=== PATIENT | male | born 1980 | race Caucasian/White ===

== ENCOUNTER → 2017-01-29 | Outpatient (CLI) | payer MEDICAID, OTHER ==
--- NOTE | 2017-01-31 04:31 | REP ---
Clinical: Lower back pain. Technique: AP, lateral, bilateral oblique and coned-down views of the lumbosacral spine. Findings: Straightening of normal lordosis is nonspecific. Moderate multilevel degenerative changes include endplate sclerosis with marginal spurring/early osteophyte formation and mild hypertrophic facet changes. No acute fracture / compression injury or subluxation. Impression: Moderate multilevel degenerative changes primarily involving the L5-S1 and L2-3 level. Signed by Manuel Young MD 01/31/2017 04:22 A
== END ==
LOC: M LRY 15:08
PROVIDERS: ATTEND Family Medicine
DX: M54.40 Lumbago with sciatica, unspecified side (principal)

== ENCOUNTER 2017-02-27 12:52 | Outpatient (RCR) | payer OTHER | END 2017-02-28 | LOC: M PT 12:52 | PROVIDERS: ATTEND Family Medicine | DX: Z51.89 Encounter for other specified aftercare (principal); M54.5 Low back pain ==

== ENCOUNTER 2017-03-18 13:00 | Outpatient (RCR) | payer OTHER | END 2017-03-30 | disposition home or self-care (01) | LOC: M PT 13:00 | PROVIDERS: ATTEND Family Medicine | DX: Z51.89 Encounter for other specified aftercare (principal); M54.5 Low back pain ==

== ENCOUNTER → 2018-01-08 | Outpatient (CLI) | payer OTHER | LOC: M OUTALCOH 10:18 | DX: Z13.9 Encounter for screening, unspecified (principal) ==

== ENCOUNTER 2018-01-15 16:59 | Outpatient (RCR) | payer MEDICAID | END 2018-01-28 | LOC: M OUTALCOH 01-21 16:00 | DX: F10.10 Alcohol abuse, uncomplicated (principal); F17.200 Nicotine dependence, unspecified, uncomplicated ==

== ENCOUNTER 2018-03-06 15:45 | Outpatient (RCR) | payer MEDICAID | END 2018-03-30 | LOC: M OUTALCOH 15:45 | DX: F10.10 Alcohol abuse, uncomplicated (principal); F17.200 Nicotine dependence, unspecified, uncomplicated ==

== ENCOUNTER 2018-03-31 14:29 | Outpatient (RCR) | payer MEDICAID | END 2018-04-30 | LOC: M OUTALCOH 14:29 | DX: F10.20 Alcohol dependence, uncomplicated (principal); F19.20 Other psychoactive substance dependence, uncomplicated; F17.200 Nicotine dependence, unspecified, uncomplicated ==

== ENCOUNTER 2018-05-02 11:16 | Outpatient (RCR) | payer MEDICAID | END 2018-05-30 | LOC: M OUTALCOH 11:16 | DX: F10.20 Alcohol dependence, uncomplicated (principal); F19.20 Other psychoactive substance dependence, uncomplicated; F17.200 Nicotine dependence, unspecified, uncomplicated ==

== ENCOUNTER 2018-06-27 13:00 | Outpatient (RCR) | payer MEDICAID | END 2018-06-30 | LOC: M OUTALCOH 13:00 | PROVIDERS: ATTEND Psychiatry & Neurology Psychiatry | DX: F10.20 Alcohol dependence, uncomplicated (principal); F19.20 Other psychoactive substance dependence, uncomplicated; F17.200 Nicotine dependence, unspecified, uncomplicated ==

== ENCOUNTER 2018-07-28 14:00 | Outpatient (RCR) | payer MEDICAID | END 2018-07-31 | LOC: M OUTALCOH 14:00 | PROVIDERS: ATTEND Psychiatry & Neurology Psychiatry | DX: F10.20 Alcohol dependence, uncomplicated (principal); F19.20 Other psychoactive substance dependence, uncomplicated; F17.200 Nicotine dependence, unspecified, uncomplicated ==

== ENCOUNTER → 2018-08-28 | Outpatient (RCR) | payer MEDICAID | LOC: M OUTALCOH 08-04 14:08 | PROVIDERS: ATTEND Psychiatry & Neurology Psychiatry | DX: F10.20 Alcohol dependence, uncomplicated (principal); F19.20 Other psychoactive substance dependence, uncomplicated; F17.200 Nicotine dependence, unspecified, uncomplicated ==

== ENCOUNTER → 2018-09-01 | Outpatient (CLI) | payer MEDICAID, OTHER ==
[2018-09-01 09:11] LABS: ALT/SGPT 29 U/L (12-78); BILIRUBIN,TOTAL 0.3 MG/DL (0.2-1.0); BLOOD UREA NITROGEN 18 MG/DL (7-18); CALCIUM LEVEL 9.2 MG/DL (8.5-10.1); CARBON DIOXIDE LEVEL 31 MEQ/L (21-32); CHLORIDE LEVEL 102 MEQ/L (98-107); CHOLESTEROL LEVEL 180 MG/DL (<200); CHOLESTEROL RISK RATIO 4.285 (<5); CREATININE FOR GFR 1.23 MG/DL (0.70-1.30); GLOMERULAR FILTRATION RATE > 60.0 (>60); GLUCOSE, FASTING 100 MG/DL (70-100); HDL CHOLESTEROL 42 MG/DL (>40); LDL CHOLESTEROL 113 MG/DL (<100); NON-HDL-C 138 MG/DL; POTASSIUM SERUM 4.3 MEQ/L (3.5-5.1); SODIUM LEVEL 140 MEQ/L (136-145); TOTAL PROTEIN 7.2 GM/DL (6.4-8.2); TRIGLYCERIDES LEVEL 125 MG/DL (<150)
[2018-09-01 10:26] LABS: HEMOGLOBIN A1c 5.5 %
== END ==
LOC: M LAB 08:08
PROVIDERS: ATTEND Family Medicine
DX: Z13.1 Encounter for screening for diabetes mellitus (principal); Z13.220 Encounter for screening for lipoid disorders

== ENCOUNTER 2018-09-26 09:00 | Outpatient (RCR) | payer MEDICAID | END 2018-09-28 | LOC: M OUTALCOH 09:00 | PROVIDERS: ATTEND Psychiatry & Neurology Psychiatry | DX: F10.20 Alcohol dependence, uncomplicated (principal); F19.20 Other psychoactive substance dependence, uncomplicated; F17.200 Nicotine dependence, unspecified, uncomplicated ==

== ENCOUNTER → 2018-10-03 | Outpatient (CLI) | payer OTHER ==
--- NOTE | 2018-10-03 15:17 | REP ---
BILATERAL LOWER EXTREMITY DUPLEX DOPPLER ARTERIAL ULTRASOUND: Real-time ultrasound evaluation and duplex Doppler interrogation of bilateral lower extremity arterial systems is performed. KRISTINE right is 1.1 and left is 1.0. No significant plaquing or narrowing is seen in either lower extremity arterial system. Triphasic waveforms are seen throughout. There is no significant stenosis. Right Peak Left Peak Systolic Velocity Systolic velocity Common femoral artery 86.0 cm/s 65.6 cm/s Profunda 54.7 cm/s 55.7 cm/s SFA 112.0 cm/s 110.0 cm/s Popliteal 63.5 cm/s 58.9 cm/s Proximal GABRIEL 40.3 cm/s 30.6 cm/s Tibial peroneal trunk 73.6 cm/s 54.6 cm/s Proximal WOUND CARE COORDINATOR 116.0 cm/s 72.7 cm/s Distal WOUND CARE COORDINATOR 63.1 cm/s 45.6 cm/s Distal GABRIEL 80.7 cm/s 56.8 cm/s IMPRESSION: No significant plaquing and no evidence of stenosis of the bilateral lower extremity arterial systems. Electronically Signed by Herber Hand MD 10/03/2018 04:25 P
== END ==
LOC: M RAD 13:10
PROVIDERS: ATTEND Family Medicine
DX: Z86.79 Personal history of other diseases of the circulatory system (principal)

== ENCOUNTER 2018-10-27 16:00 | Outpatient (RCR) | payer MEDICAID | END 2018-10-28 | LOC: M OUTALCOH 16:00 | PROVIDERS: ATTEND Psychiatry & Neurology Psychiatry | DX: F10.20 Alcohol dependence, uncomplicated (principal); F19.20 Other psychoactive substance dependence, uncomplicated; F17.200 Nicotine dependence, unspecified, uncomplicated ==

== ENCOUNTER → 2018-11-13 | Outpatient (CLI) | payer MEDICAID, OTHER ==
--- NOTE | 2018-11-13 17:26 | REP ---
Chest two views HISTORY: Cellulitis Comparison: None The lungs are clear. The heart is normal in size. The pulmonary vasculature is normal in appearance. The bony structure is intact. IMPRESSION: No acute disease. Electronically Signed by Glenn Bowman MD 11/13/2018 05:18 P
[2018-11-13 20:53] LABS: BASO # 0.1 10^3/uL (0.0-0.2); BASO % 0.3 % (0.0-1.0); EOS # 0.2 10^3/uL (0.0-0.50); EOS % 1.4 % (0.0-3.0); HEMATOCRIT 45.5 % (42.0-52.0); LYMPH # 2.9 10^3/uL (1.5-4.5); LYMPH % 17.2 % (24.0-44.0); MEAN CORPUSCULAR HEMOGLOBIN 30.4 pg (27.0-33.0); MEAN CORPUSCULAR VOLUME 92.3 fl (80.0-96.0); MONO % 5.7 % (0.0-5.0); NEUTROPHILS # 12.8 10^3/uL (1.8-7.7); PLATELET COUNT, AUTOMATED 347 10^3/uL (150-450); RED BLOOD COUNT 4.93 10^6/uL (4.30-6.10)
[2018-11-13 20:55] LABS: ALBUMIN 4.1 GM/DL (3.2-5.2); ALT/SGPT 20 U/L (12-78); BILIRUBIN,TOTAL 0.4 MG/DL (0.2-1.0); BLOOD UREA NITROGEN 19 MG/DL (7-18); CALCIUM LEVEL 9.9 MG/DL (8.5-10.1); CARBON DIOXIDE LEVEL 28 MEQ/L (21-32); CHLORIDE LEVEL 105 MEQ/L (98-107); CREATININE FOR GFR 1.05 MG/DL (0.70-1.30); GLOMERULAR FILTRATION RATE > 60.0 (>60); GLUCOSE, FASTING 83 MG/DL (70-100); POTASSIUM SERUM 4.1 MEQ/L (3.5-5.1); SODIUM LEVEL 139 MEQ/L (136-145); TOTAL PROTEIN 7.1 GM/DL (6.4-8.2)
== END ==
LOC: M WUC 16:56
PROVIDERS: ATTEND Physician Assistant
DX: L03.032 Cellulitis of left toe (principal); M79.669 Pain in unspecified lower leg

== ENCOUNTER 2018-11-14 09:00 | Outpatient (RCR) | payer MEDICAID | END 2018-11-28 | LOC: M OUTALCOH 09:00 | PROVIDERS: ATTEND Psychiatry & Neurology Psychiatry | DX: F10.20 Alcohol dependence, uncomplicated (principal); F19.20 Other psychoactive substance dependence, uncomplicated; F17.200 Nicotine dependence, unspecified, uncomplicated ==

== ENCOUNTER 2018-12-26 12:03 | Outpatient (RCR) | payer MEDICAID | END 2018-12-28 | LOC: M OUTALCOH 12:03 | PROVIDERS: ATTEND Psychiatry & Neurology Psychiatry | DX: F10.20 Alcohol dependence, uncomplicated (principal); F19.20 Other psychoactive substance dependence, uncomplicated; F17.200 Nicotine dependence, unspecified, uncomplicated ==

== ENCOUNTER 2019-02-19 15:00 | Outpatient (RCR) | payer MEDICAID | END 2019-02-28 | LOC: M OUTALCOH 15:00 | PROVIDERS: ATTEND Psychiatry & Neurology Psychiatry | DX: F10.20 Alcohol dependence, uncomplicated (principal); F19.20 Other psychoactive substance dependence, uncomplicated; F17.200 Nicotine dependence, unspecified, uncomplicated ==

== ENCOUNTER 2019-03-27 09:00 | Outpatient (RCR) | payer MEDICAID | END 2019-03-30 | LOC: M OUTALCOH 09:00 | PROVIDERS: ATTEND Psychiatry & Neurology Psychiatry | DX: F10.20 Alcohol dependence, uncomplicated (principal) ==

== ENCOUNTER → 2019-05-08 | Outpatient (REF) | payer OTHER | LOC: M SFHCPLAZ 09:30 | PROVIDERS: ATTEND Family Medicine | DX: Z00.00 Encounter for general adult medical examination without abnormal findings (principal); F17.210 Nicotine dependence, cigarettes, uncomplicated ==

== ENCOUNTER 2019-05-11 09:10 | Outpatient (RCR) | payer MEDICAID | END 2019-05-30 | LOC: M OUTALCOH 09:10 | PROVIDERS: ATTEND Psychiatry & Neurology Psychiatry | DX: F10.20 Alcohol dependence, uncomplicated (principal) ==

== ENCOUNTER 2019-07-31 14:06 | Emergency (ER) | payer MEDICAID, OTHER ==
[~2019-07-31] VITALS: Ht 198.1 cm; Wt 123.7 kg
[2019-07-31] MEDS ORDERED: GABA-845 (14:14)
[2019-07-31 14:52] LABS: BASO # 0.1 10^3/uL (0.0-0.2); BASO % 0.6 % (0.0-1.0); EOS # 0.3 10^3/uL (0.0-0.5); EOS % 2.8 % (0.0-3.0); HEMATOCRIT 47.3 % (42.0-52.0); LYMPH # 2.3 10^3/uL (1.5-5.0); LYMPH % 21.9 % (24.0-44.0); MEAN CORPUSCULAR HEMOGLOBIN 30.9 pg (27.0-33.0); MEAN CORPUSCULAR HGB CONC 33.8 g/dl (32.0-36.5); MEAN CORPUSCULAR VOLUME 91.5 fl (80.0-96.0); MONO # 0.8 10^3/uL (0.0-0.8); MONO % 7.8 % (0.0-5.0); NEUTROPHILS # 6.9 10^3/uL (1.5-8.5); NEUTROPHILS % 66.7 % (36.0-66.0); PLATELET COUNT, AUTOMATED 336 10^3/uL (150-450); RED BLOOD COUNT 5.17 10^6/uL (4.30-6.10); WHITE BLOOD COUNT 10.4 10^3/uL (4.0-10.0)
--- NOTE | 2019-07-31 14:54 | REP ---
No chest, 02:49, single AP view with the the patient sitting: Comparison is the PA and lateral chest of 11/13/2018. The lung wright are clear. The cardiac size is normal. The letha, mediastinum, and skeletal structures are unremarkable. Impression: Negative portable chest. There is no interval change. Electronically Signed by Herber Murillo MD 07/31/2019 02:46 P
[2019-07-31] MEDS ORDERED: dexameTHASONE 20 MG/5 ML VIAL (J1100) IV ONE (15:00)
[2019-07-31] MEDS ORDERED: ALBUTEROL SULFATE 2.5 MG/0.5 ML INH NEB SOLN INH ONE (15:00)
[2019-07-31 15:13] LABS: BLOOD UREA NITROGEN 16 MG/DL (7-18); CALCIUM LEVEL 9.3 MG/DL (8.5-10.1); CARBON DIOXIDE LEVEL 25 MEQ/L (21-32); CHLORIDE LEVEL 109 MEQ/L (98-107); CK-MB VALUE MASS < 1.0 NG/ML (<3.6); CPK CREATINE PHOSPHOKINASE 114 U/L (39-308); CREATININE FOR GFR 1.12 MG/DL (0.70-1.30); GLOMERULAR FILTRATION RATE > 60.0 (>60); GLUCOSE, FASTING 98 MG/DL (70-100); MB/CK RELATIVE INDEX 0.88 (< OR =4); POTASSIUM SERUM 4.1 MEQ/L (3.5-5.1); SODIUM LEVEL 140 MEQ/L (136-145); TROPONIN I < 0.02 NG/ML (< 0.10)
[2019-07-31 16:45] VITALS: BP 119/73
[2019-07-31] MEDS ORDERED: PROAAER10 INH (16:46)
[2019-07-31] MEDS ORDERED: PRED20TA PO (16:46)
--- NOTE | 2019-08-01 21:27 | ECGEPIP ---
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
== END 2019-07-31 17:16 | disposition home or self-care (01) ==
LOC: M ED 14:06
DX: J45.901 Unspecified asthma with (acute) exacerbation (principal); F17.200 Nicotine dependence, unspecified, uncomplicated; I45.19 Other right bundle-branch block; Z79.899 Other long term (current) drug therapy
CPT/HCPCS: 71045; 80048; 82550; 82553; 85025; 93005; 93041; 94760; 96374; 99285; J1100

== ENCOUNTER 2020-04-20 16:44 | Emergency (ER) | payer OTHER ==
[~2020-04-20] VITALS: Ht 198.1 cm; Wt 112.0 kg
[~2020-04-20 16:44] MED LIST: GABA-845; PRED20TA PO; PROAAER10 INH
[2020-04-20] MEDS ORDERED: IBUP80TA PO (17:05)
[2020-04-20] MEDS ORDERED: CLIN300C5 PO (17:05)
[2020-04-20] MEDS ORDERED: ONDANSETRON 4MG/2ML VIAL IV ONE (17:45)
[2020-04-20] MEDS ORDERED: MORPHINE 4 MG/ML 1ML VIAL/SYRINGE (J2270) IV ONE (17:45)
[2020-04-20] MEDS ORDERED: NS 1,000 ML IV ONE (17:45)
[2020-04-20 18:26] LABS: BASO # 0.1 10^3/uL (0.0-0.2); BASO % 0.4 % (0.0-1.0); EOS # 0.1 10^3/uL (0.0-0.5); EOS % 0.4 % (0.0-3.0); HEMATOCRIT 46.3 % (42.0-52.0); HEMOGLOBIN 15.7 g/dl (13.5-17.5); LYMPH % 8.8 % (24.0-44.0); MEAN CORPUSCULAR HEMOGLOBIN 31.5 pg (27.0-33.0); MEAN CORPUSCULAR HGB CONC 33.9 g/dl (32.0-36.5); MEAN CORPUSCULAR VOLUME 92.8 fl (80.0-96.0); MONO # 1.9 10^3/uL (0.0-0.8); MONO % 8.4 % (0.0-5.0); NEUTROPHILS # 18.2 10^3/uL (1.5-8.5); NEUTROPHILS % 81.5 % (36.0-66.0); PLATELET COUNT, AUTOMATED 344 10^3/uL (150-450); RED BLOOD COUNT 4.99 10^6/uL (4.30-6.10); WHITE BLOOD COUNT 22.3 10^3/uL (4.0-10.0)
[2020-04-20 19:46] VITALS: BP 126/80
== END 2020-04-20 20:24 | disposition home or self-care (01) ==
LOC: M ED 16:44
DX: L76.22 Postprocedural hemorrhage of skin and subcutaneous tissue following other procedure (principal); K08.109 Complete loss of teeth, unspecified cause, unspecified class; F17.200 Nicotine dependence, unspecified, uncomplicated; Z79.51 Long term (current) use of inhaled steroids; Z79.1 Long term (current) use of non-steroidal anti-inflammatories (NSAID); Z79.899 Other long term (current) drug therapy
CPT/HCPCS: 85025; 96361; 96374; 96375; 99283; J2270; J2405

== ENCOUNTER → 2020-07-08 | Outpatient (CLI) | payer OTHER ==
[~2020-07-08] MED LIST changes: +CLIN300C6 PO; +IBUP80TA PO
[2020-07-08 09:46] LABS: BASO # 0.1 10^3/uL (0.0-0.2); BASO % 0.6 % (0.0-1.0); EOS # 0.3 10^3/uL (0.0-0.5); HEMATOCRIT 42.4 % (42.0-52.0); HEMOGLOBIN 13.5 g/dl (13.5-17.5); LYMPH # 2.5 10^3/uL (1.5-5.0); LYMPH % 23.2 % (24.0-44.0); MEAN CORPUSCULAR HEMOGLOBIN 28.6 pg (27.0-33.0); MEAN CORPUSCULAR HGB CONC 31.8 g/dl (32.0-36.5); MEAN CORPUSCULAR VOLUME 89.8 fl (80.0-96.0); MONO # 0.9 10^3/uL (0.0-0.8); MONO % 8.5 % (0.0-5.0); NEUTROPHILS % 64.3 % (36.0-66.0); PLATELET COUNT, AUTOMATED 343 10^3/uL (150-450); RED BLOOD COUNT 4.72 10^6/uL (4.30-6.10); WHITE BLOOD COUNT 10.8 10^3/uL (4.0-10.0)
[2020-07-08 10:26] LABS: ALBUMIN 4.1 GM/DL (3.2-5.2); ALT/SGPT 26 U/L (12-78); BILIRUBIN,TOTAL 0.3 MG/DL (0.2-1.0); BLOOD UREA NITROGEN 23 MG/DL (7-18); CARBON DIOXIDE LEVEL 27 MEQ/L (21-32); CHLORIDE LEVEL 104 MEQ/L (98-107); CHOLESTEROL LEVEL 156 MG/DL (<200); CREATININE FOR GFR 1.13 MG/DL (0.70-1.30); GLOMERULAR FILTRATION RATE > 60.0 (>60); GLUCOSE, FASTING 89 MG/DL (70-100); HDL CHOLESTEROL 60 MG/DL (>40); LDL CHOLESTEROL 75 MG/DL (<100); NON-HDL-C 96 MG/DL; POTASSIUM SERUM 4.5 MEQ/L (3.5-5.1); SODIUM LEVEL 136 MEQ/L (136-145); TOTAL PROTEIN 7.2 GM/DL (6.4-8.2); TRIGLYCERIDES LEVEL 104 MG/DL (<150)
== END ==
LOC: M LAB 08:55
PROVIDERS: ATTEND Family Medicine
DX: Z00.01 Encounter for general adult medical examination with abnormal findings (principal); Z13.220 Encounter for screening for lipoid disorders

== ENCOUNTER 2020-07-13 14:51 | Emergency (ER) | payer OTHER ==
[~2020-07-13] VITALS: Ht 198.1 cm; Wt 109.7 kg
[2020-07-13 14:52] VITALS: BP 130/68
--- OUTSIDE RECORDS SUMMARY | 2020-07-13 14:57 | CCD ---
Author Author [facility] Organization [facility] Address Unknown Phone Unavailable Care Team Providers Care Mechanical Reliability Engineer Name Role Phone Reilly Ramos Unavailable PROBLEMS Type Condition ICD9-CM Code [id number] Code Onset Dates Condition S tatus SNOMED Code Notes Problem Cigarette nicotine dependence without complication F17.210 Active 30929376 Problem Venous (peripheral) insufficiency I87.2 Active 05884411 Problem Acute bilateral low back ventura n with sciatica, sciatica laterality unspecified M54.40 Active 471272726 Problem Alcohol use disorder, mild, in early remission F10 .11 Active 27138456 Problem Anxiety F41.9 Active 99923362 ALLERGIES No Known Allergies ENCOUNTERS from 1980 to 2020-06-07 Encounter Location Date Provider Diagnosis [facility] [place] [address] [place] [address] May, Reilly Ramos IMMUNIZATIONS Vaccine Route Administration Date Status Influenza (18 yrs & older) Flublok IM Intramuscular May 08, 2019 Administered Pneumococcal Adult 0.5mL (Pneumovax 23) IM Intramuscular May 08, 2019 Administered SOCIAL HISTORY Tobacco Use: Social History Observation Description Date Details (start date - stop date) Current Smoker Sex Assigned At : Social History Observation Description Sex Assigned At Unknown Audit Question Answer Notes Total Score: 0 Interpretation: Alcohol Education Sexual Hx: Question Answer Notes Had sex in the last 12 months (vaginal, oral, or anal)? Yes Have you ever had an STD? No with Women only Use protection? No Drug and Alcohol Question Answer Notes Total Score: 0 Interpretation: No problems reported Alcohol Screening: Question Answer Notes Did you have a drink containing alcohol in the past year? No Points 0 Interpretation Negative Tobacco Use: Question Answer Notes Are you a: current smoker Smoking Cessation Information Given 03/13/2019 Patient counseled on the dangers of tobacco use and urged to quit: 03/13/2019 How many cigarettes a day do you smoke? 21-30 Are you interested in quitting? Thinking about quitting Counseled the patient on smoking cessation, education provid ed 03/13/2019 REASON FOR REFERRAL No Information VITAL SIGNS No information MEDICATIONS Medication SIG (Take, Route, Frequency, Duration) Notes Start Da te End Date Status Gabapentin 400 MG 1 capsule Orally Three times a day for 30 days Active A-4 High Compression Mens Hose Above the knee 10-20 mm Hg as directed _ Daily for [address] days Nov, Active Chantix 1 MG 1 tablet Orally Twice a day for 30 day(s) Not-Taking Propranolol HCl 10 MG 1 tablet on an empty stomach Orally Once a day Active PROCEDURES No Information RESULTS No Results REASON FOR VISIT no showed MEDICAL (GENERAL) HISTORY Type Description Date Medical History anxiety/depression Surgical History No Surgical history information Goals Section No Information Health Concerns No Information MEDICAL EQUIPMENT No Information MENTAL STATUS No Information FUNCTIONAL STATUS No Information ASSESSMENTS No Information PLAN OF TREATMENT No Information Insurance Providers Payer Name Payer Address Payer Phone Insured Name Patient Relati onship to Insured Coverage Start Date Coverage End Date PENDING S[facility] [address] [facility] [address] GOPI LAWS self
--- OUTSIDE RECORDS SUMMARY | 2020-07-13 14:57 | CCD ---
Author Author [facility] Organization [facility] Address Unknown Phone Unavailable Support Name Relationship Address Phone STUBBS Next Of Kin [address] [place] [address] [employer] Next Of Kin [address] [place] [address] LALO GOODEN Next Of Kin [address] [place] [address] [facility] SPECIAL[employer] [place] [address] - UE Next Of Kin Unknown Unavailable UNEMPLOYED [place] [address] FARZANEH PARK Next Of Kin [address] [place] [address] [place] [address] September Next Of Kin [address] [place] [address] Lalo Gooden ECON [address] [place] [address] Unavailable Re-disclosure Warning The records that you are about to access may contain information from federally-assisted alcohol or drug abuse programs. If such information is present, then the following federally mandated warning applies: This information has been disclosed to you from records protected by federal confidentiality rules (42 CFR part 2). The federal rules prohibit you from making any further disclosure of this information unless further disclosure is expressly permitted by the written consent of the person to whom it pertains or as otherwise permitted by 42 CFR part 2. A general authorization for the release of medical or other information is NOT sufficient for this purpose. The Federal rules restrict any use of the information to criminally investigate or prosecute any alcohol or drug abuse patient.The records that you are about to access may contain highly sensitive health information, the redisclosure of which is protected by Article 27-F of the [facility] Public Health law. If you continue you may have access to information: Regarding HIV / AIDS; Provided by facilities licensed or operated by the [facility] Office of Mental Health; or Provided by the [facility] Office for People With Developmental Disabilities. If such information is present, then the following [facility] mandated warning applies: This information has been disclosed to you from confidential records which are protected by state law. State law prohibits you from making any further disclosure of this information without the specific written consent of the person to whom it pertains, or as otherwise permitted by law. Any unauthorized further disclosure in violation of state law may result in a fine or senior care sentence or both. A general authorization for the release of medical or other information is NOT sufficient authorization for further disc losure. Family History Family Member Name Family Member Gender Family Member Status Date o f Status Description Data Source(s) Unknown Unknown Problem MEDENT ([facility]) Unknown Female Problem MEDENT ([facility] ) Encounters Encounter Providers Location Date Indications Data Source(s ) Outpatient [address] [facility] [place] [address] 06/29/2020 12:00:00 AM EST eCW1 ([facility]) Unknown [address] [facility] [place] [address] 06/06/2020 12:00:00 AM EST eCW1 ([facility]) Outpatient 08/11/2019 02:12:00 PM EST [facility] Rad[facility] [place] [address] [facility] [place] [address] 08/03/2019 12:00:00 AM EST eCW1 ([facility]) [facility] [address] [facility] [place] [address] 06/19/2019 12:00:00 AM EST eCW1 ([facility]) Medications Medication Brand Name Start Date Product Form Dose Route Admi nistrative Instructions Pharmacy Instructions Status Indications Reaction Description Data Source(s) Chantix Starting Month Denilson 0.5 MG X 11 & 1 MG X 42 Cassandra ntix Starting Month Denilson 0.5 MG X 11 & 1 MG X 42 06/29/2020 12:00:00 AM EST active Chantix Starting Month Denilson 0.5 MG X 11 & 1 MG X 42 eCW1 ([facility]) Chantix Continuing Month Denilson 1 MG Chantix Continuing Month P ak 1 MG 06/29/2020 12:00:00 AM EST 1.0 {tablet} active Chantix Continuing Month Denilson 1 MG eCW1 ([facility]) Insurance Providers Payer name Policy type / Coverage type Policy ID Covered alliance party ID Covered alliance party's relationship to daily Policy Daily Plan Information [facility] [id number] SP [id number] [facility] [id number] SP [id number] [facility] O [id number] S [id number] [facility] [id number] SP [id number] MEDICAID [id number] SP [id number] ANSI-Medicaid [id number] ANSI-Medicaid [id number] [facility] Health Maintenance Organization ([facility]) [id number] Self [id number] ANSI-Medicaid [id number] ANSI-Medicaid [id number] ANSI-Medicaid [id number] ANSI-Medicaid [id number] [facility] O [id number] S [id number] Medicaid [place] (DO Not Use!) Medicaid Self BS [place] Medigap Part B Self Medicaid [place] Self MEDICAID -O/P EMERGENCY ROOM [id number] 18 [id number] [facility] [id number] 18 [id number] [facility]-O/P [id number] 18 [id number] Social History Code Duration Value Status Description Data Source(s ) Smoking 06/29/2020 12:00:00 AM EST Current Smoker completed Curre nt Smoker eCW1 ([facility]) Smoking 06/06/2020 12:00:00 AM EST Current Smoker completed Curre nt Smoker eCW1 ([facility]) Vital Signs ID Date Data Source UNK Name Value Range Interpretation Code Description Data Source(s) Diastolic blood pressure 82 mm[Hg] 82 mm[Hg] eCW1 ([facility]) Systolic blood pressure 120 mm[Hg] 120 mm[Hg] e CW1 ([facility]) Body temperature 97.4 [degF] 97.4 [degF] eCW1 ( [facility]) Respiratory rate 17 /min 17 /min eCW1 ([facility]) Heart rate 98 /min 98 /min eCW1 ([facility]) Body mass index (BMI) [Ratio] 27.12 kg/m2 27.12 kg/m2 eCW1 ([facility]) Body height 79.2 [in_i] 79.2 [in_i] eCW1 ([facility]) Body weight 242 [lb_av] 242 [lb_av] eCW1 ([facility]) Patient Treatment Plan of Care Planned Activity Planned Date Details Description Data Source (s) Chantix Continuing Month Denilson 1 MG 06/29/2020 12:00:00 AM EST eCW1 ([facility]) Chantix Starting Month Denilson 0.5 MG X 11 & 1 MG X 42 06/29/2020 12 :00:00 AM EST eCW1 ([facility])
--- OUTSIDE RECORDS SUMMARY | 2020-07-13 14:57 | CCD ---
Author Author [facility] Organization [facility] Address Unknown Phone Unavailable Care Team Providers Care Diabetes Education Coordinator Name Role Phone Reilly Ramos Unavailable PROBLEMS Type Condition ICD9-CM Code [id number] Code Onset Dates Condition S tatus SNOMED Code Notes Problem Cigarette nicotine dependence without complication F17.210 Active 69095825 Problem Venous (peripheral) insufficiency I87.2 Active 03947410 Problem Acute bilateral low back ventura n with sciatica, sciatica laterality unspecified M54.40 Active 724058286 Problem Alcohol use disorder, mild, in early remission F10 .11 Active 23270203 Problem Anxiety F41.9 Active 19785997 ALLERGIES No Known Allergies ENCOUNTERS from 1980 to 2020-06-29 Encounter Location Date Provider Diagnosis [facility] [place] Resident [address] [place] [address] May, Reilly Ramos Encounter for general adult medical examination with abnormal findings Z00.01 ; Anxiety F41.9 ; Screening for hyperlipidemia Z13.220 ; Cigarette nicotine dependence without complication F17.210 and Encounter for immunization Z23 IMMUNIZATIONS Vaccine Route Administration Date Status Influenza [...] drink containing alcohol in the past year? Ye s Points 3 Interpretation Negative How many drinks did you have on a typica l day when you were drinking in the past year? 3 or 4 (1 point) How often did you have a drink containing alcohol in t he past year? Two to four times a month (2 points) Tobacco Use: Question Answer Notes Are you a: current smoker Smoking Cessation Information Given 03/13/2019 Patient counseled on the dangers of tobacco use and urged to quit: 03/13/2019 How many cigarettes a day do you smoke? 21-30 Are you interested in quitting? Thinking about quitting Counseled the patient on smoking cessation, education provid ed 03/13/2019 REASON FOR REFERRAL No Information VITAL SIGNS Weight 242 lbs May, Height 79.2 in May, BMI 27.12 kg/m2 May, Heart Rate 98 /min May, Respiratory Rate 17 /min May, Temperature 97.4 degrees Fahrenheit May, Oximetry 99 May, Blood pressure systolic 120 mm Hg May, Blood pressure diastolic 82 mm Hg May, MEDICATIONS Medication SIG (Take, Route, Frequency, Duration) Notes Start Da te End Date Status A-4 High Compression Mens Hose Above the knee 10-20 mm Hg as directed _ Daily for [address] days Nov, Not-Taking Chantix Starting Month Denilson 0.5 MG X 11 & 1 MG X 42 as directed Orally 5 mg once a day for 3 days, then 0.5 mg twice a day for 4 days, then 1 mg BID for 30 days May, Active Gabapentin 400 MG 1 capsule Orally Three times a day for 30 days Active Chantix Continuing Month Denilson 1 MG 1 tablet Orally BID for 30 day s May, Active Propranolol HCl 10 MG 1 tablet on an empty stomach Orally Once a day Not-Taking Chantix 1 MG 1 tablet Orally Twice a day for 30 day(s) Not-Taking PROCEDURES No Information RESULTS No Results REASON FOR VISIT r/s of AWE MEDICAL (GENERAL) HISTORY Type Description Date Medical History anxiety/depression Surgical History No Surgical history information Goals Section No Information Health Concerns No Information MEDICAL EQUIPMENT No Information MENTAL STATUS No Information FUNCTIONAL STATUS No Information ASSESSMENTS Encounter Date Diagnosis Assessment Notes Treatment Notes Treatm ent Clinical Notes May, Encounter for general adult medical examination with abnormal findings (ICD-10 - Z00.01) See preventative medicine below. Patient is due for some laboratory studies which have been ordered. May, Anxiety (ICD-10 - F41.9) I will restart the patient on his gabapentin as this was working well for him for his anxiety. Patient's KEVIN-7 score is a 16. We will recheck this in 3 months after he has been on his anxiety medication to see how he is doing. May, Screening for hyperlipidemia (ICD-10 - Z13.220) Patient is a had a lipid panel since August 2018. This was ordered today. May, Cigarette nicotine dependenc e without complication (ICD-10 - F17.210) I discussed the benefits of quitting smoking with the patient including helping to lower his cardiovascular risk. Patient states that he does not want to go into his 40s while smoking. Patient says Chantix worked well for him in the past and would like to try this medication again. I discussed the benefits and risks to Chantix including the risk for vivid dreams and suicidal ideations. Patient tolerated his medication well. I discussed not getting discouraged with relapse attempts in trying alternate strategies when he has cravings in order to work through the cravings. I spent about 7 minutes counseling the patient. May, Encounter for immunization (ICD-10 - Z23) Patient needed an influenza vaccine today which was given. Advised patient that he will need 2 weeks prior to receiving the Covid 19 vaccine. PLAN OF TREATMENT Medication Medication Name Sig Start Date Stop Date Gabapentin 400 MG 1 capsule Orally Three times a day for 30 days Chantix Continuing Month Denilson 1 MG 1 tablet Orally BID for 30 day s May, Chantix Starting Month Denilson 0.5 MG X 11 & 1 MG X 42 as directed Orally 5 mg once a day for 3 days, then 0.5 mg twice a day for 4 days, then 1 mg BID for 30 days May, Treatment Notes Assessment Notes Clinical Notes Encounter for general adult medical examination with a bnormal findings See preventative medicine below. Patient is due for some laboratory studies which have been ordered. Anxiety I will restart the patient o n his gabapentin as this was working well for him for his anxiety. Patient's KEVIN-7 score is a 16. We will recheck this in 3 months after he has been on his anxiety medication to see how he is doing. Screening for hyperlipidemia Patient is a had a lipid panel since August 2018. This was ordered today. Cigarette nicotine dependence without complication I d iscussed the benefits of quitting smoking with the patient including helping to lower his cardiovascular risk. Patient states that he does not want to go into his 40s while smoking. Patient says Chantix worked well for him in the past and would like to try this medication again. I discussed the benefits and risks to Chantix including the risk for vivid dreams and suicidal ideations. Patient tolerated his medication well. I discussed not getting discouraged with relapse attempts in trying alternate strategies when he has cravings in order to work through the cravings. I spent about 7 minutes counseling the patient. Encounter for immunization Patient needed an influenza vaccine today which was given. Advised patient that he will need 2 weeks prior to receiving the Covid 19 vaccine. Treatment Notes Test Name Order Date Comprehensive Metabolic Profile (CMP) 2020-06-29 LIPID PANEL (CARDIAC RISK) 2020-06-29 CBC with Auto Differential 2020-06-29 Immunization: Flublok Quadrivalent (18 years & older) 0.5mL IM (Influenza) 2020-06-29 Next Appt Details 3 Months Reason:anxiety/smoking cessatio n Follow Up:3 Monthsanxiety/smoking cessation Insurance Providers Payer Name Payer Address Payer Phone Insured Name Patient Relati onship to Insured Coverage Start Date Coverage End Date [employer] [address] [facility] [phone] GOPI LAWS self
--- OUTSIDE RECORDS SUMMARY | 2020-07-13 14:57 | CCD ---
Author Author [facility] Organization [facility] Address Unknown Phone Unavailable Care Team Providers Care Education Adviser Name Role Phone Reilly Ramos Unavailable PROBLEMS Type Condition ICD9-CM Code [id number] Code Onset Dates Condition S tatus SNOMED Code Notes Problem Alcohol use disorder, mild, in early remission F10 .11 Active 43977121 Problem Anxiety F41.9 Active 40506279 Problem Acute bilateral low back ventura n with sciatica, sciatica laterality unspecified M54.40 Active 305803841 Problem Cigarette nicotine dependence without complication F17.210 Active 95087778 ALLERGIES No Information ENCOUNTERS from 1980 to 2018-10-29 Encounter Location Date Provider Diagnosis [address] [address] October, Reilly Ramos IMMUNIZATIONS No Information SOCIAL HISTORY Sex Assigned At : Social History Observation Description Sex Assigned At Unknown REASON FOR REFERRAL No Information VITAL SIGNS No information MEDICATIONS No Information PROCEDURES No Information RESULTS No Results REASON FOR VISIT no-showed MEDICAL (GENERAL) HISTORY Type Description Date Medical [...] Insured Coverage Start Date Coverage End Date [facility] [employer] [facility] [address] [facility] [phone] GOPI LAWS self
--- OUTSIDE RECORDS SUMMARY | 2020-07-13 16:29 | CCD ---
Author Author [facility] Organization [facility] Address Unknown Phone Unavailable Support Name Relationship Address Phone STUBBS Next Of Kin [address] [place] [address] [employer] Next Of Kin [address] [place] [address] LALO GOODEN Next Of Kin [address] [place] [address] [facility] [place] [address] - UE Next Of Kin Unknown Unavailable UNEMPLOYED [place] [address] [employer]AR[employer] PARK Next Of Kin [address] [place] [address] [place] [address] September Next Of Kin [address] [place] [address] Lalo Gooden ECON [address] [place] [address] Unavailable Re-disclosure Warning The records that you [...] is protected by Article 27-F of the [facility] Public Health law. If you continue you may have access to information: Regarding HIV / AIDS; Provided by facilities licensed or operated by the [facility] Office of Mental Health; or Provided by the [facility] Office for People With Developmental Disabilities. If such information is present, then the following [facility] mandated warning applies: This information has been [...] law may result in a fine or detention sentence or both. A general authorization for the release of medical or other information is NOT sufficient authorization for further disc losure. Family History Family Member Name Family Member Gender Family Member Status Date o f Status Description Data Source(s) Unknown Unknown Problem MEDENT ([facility]) Unknown Female Problem MEDENT ([facility] ) Encounters Encounter Providers Location Date Indications Data Source(s ) Outpatient [address] [facility] [place] [id number] 06/29/2020 12:00:00 AM EST eCW1 ([facility]) Unknown [address] [facility] [place] [id number] 06/06/2020 12:00:00 AM EST eCW1 ([facility]) Outpatient 08/11/2019 02:12:00 PM EST [facility] [place] [address] [facility] [place] [address] 08/03/2019 12:00:00 AM EST eCW1 ([facility]) [facility] [address] [facility] [place] [address] 06/19/2019 12:00:00 AM EST eCW1 ([facility]) Medications Medication Brand Name Start Date Product [...] 11 & 1 MG X 42 eCW1 ([facility]) Chantix Continuing Month Denilson 1 MG Chantix Continuing Month P ak 1 MG 06/29/2020 12:00:00 AM EST 1.0 {tablet} active Chantix Continuing Month Denilson 1 MG eCW1 ([facility]) Insurance Providers Payer name Policy type / Coverage type Policy ID Covered republican ID Covered republican's relationship to daily Policy Daily Plan Information [facility] [id number] SP [id number] [facility] [id number] SP [id number] [facility]) O [id number] S [id number] [facility] [id number] SP [id number] MEDICAID [id number] SP [id number] ANSI-Medicaid [id number] ANSI-Medicaid [id number] [facility] Health Maintenance Organization [place] [id number] Self [id number] ANSI-Medicaid [id number] ANSI-Medicaid [id number] ANSI-Medicaid [id number] ANSI-Medicaid [id number] [facility]) O [id number] S [id number] Medicaid [place] (DO Not Use!) Medicaid Self BS [place] Medigap Part B Self Medicaid [place] Self MEDICA[place] -O/P EMERGENCY ROOM [id number] 18 [id number] [facility] [id number] 18 [id number] [facility] [id number] 18 [id number] Social History Code Duration Value Status Description Data Source(s ) Smoking 06/29/2020 12:00:00 AM EST Current Smoker completed Curre nt Smoker eCW1 ([facility]) Smoking 06/06/2020 12:00:00 AM EST Current Smoker completed Curre nt Smoker eCW1 ([facility]) Vital Signs ID Date Data Source UNK Name Value Range Interpretation Code Description Data Source(s) Diastolic blood pressure 82 mm[Hg] 82 mm[Hg] eCW1 ([facility]) Systolic blood pressure 120 mm[Hg] 120 mm[Hg] e CW1 ([facility]) Body temperature 97.4 [degF] 97.4 [degF] eCW1 ( [facility]) Respiratory rate 17 /min 17 /min eCW1 ([facility]) Heart rate 98 /min 98 /min eCW1 ([facility]) Body mass index (BMI) [Ratio] 27.12 kg/m2 27.12 kg/m2 eCW1 ([facility]) Body height 79.2 [in_i] 79.2 [in_i] eCW1 ([facility]) Body weight 242 [lb_av] 242 [lb_av] eCW1 ([facility]) Patient Treatment Plan of Care Planned Activity Planned Date Details Description Data Source (s) Chantix Continuing Month Denilson 1 MG 06/29/2020 12:00:00 AM EST eCW1 ([facility]) Chantix Starting Month Denilson 0.5 MG X 11 & 1 MG X 42 06/29/2020 12 :00:00 AM EST eCW1 ([facility])
[2020-07-13] MEDS ORDERED: DOXY100C37 PO (17:06)
[2020-07-13] MEDS ORDERED: DOXYCYCLINE HYCLATE 100MG TABLET PO ONE (17:15)
== END 2020-07-13 17:21 | disposition home or self-care (01) ==
LOC: M ED 14:51
DX: B34.8 Other viral infections of unspecified site (principal); F17.200 Nicotine dependence, unspecified, uncomplicated
CPT/HCPCS: 99282; U0003

== ENCOUNTER → 2020-10-10 | Outpatient (CLI) | payer OTHER ==
[~2020-10-10] MED LIST changes: +DOXY100C37 PO
--- NOTE | 2020-10-11 10:27 | REP ---
INDICATION: PAIN IN RIGHT ANKLE AND JOINTS OF RIGHT FOOT COMPARISON: None. TECHNIQUE: AP, lateral, bilateral oblique views right and left ankle. FINDINGS: Right ankle: Small spur is identified along the inferior fibular tip with minimal sclerosis. The ankle mortise appears intact and normal. Small corticated densities adjacent to the medial malleolus cannot be excluded and may reflect old injury. Lateral view demonstrates a bulky heterogeneous broad-based osteophytic complex forming along the superior/dorsal talonavicular joint (talar beak). No acute fracture or dislocation identified. Surrounding soft tissues are grossly unremarkable. Left ankle: Nonspecific generalized age-related changes noted. Ankle mortise appears intact and normal. Lateral view demonstrates a somewhat broad-based bulky heterogeneous osteophytic complex forming along the superior/dorsal talonavicular joint (talar beak) less pronounced than the right side. No acute fracture or dislocation. 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 <Electronically signed by Manuel Young > 10/11/20 1029
== END ==
LOC: M RAD 10:13
PROVIDERS: ATTEND Family Medicine
DX: M25.571 Pain in right ankle and joints of right foot (principal); M25.572 Pain in left ankle and joints of left foot

== ENCOUNTER → 2021-09-05 | Outpatient (CLI) | payer OTHER ==
[~2021-09-05] MED LIST changes: +CLIN-250 PO; -CLIN300C6 PO; +DOXY-443 PO; -DOXY100C37 PO; +GABA-283; -GABA-845
== END ==
LOC: M PLALAB 09:28
PROVIDERS: ATTEND Student in an Organized Health Care Education/Training Program
DX: N40.1 Benign prostatic hyperplasia with lower urinary tract symptoms (principal)

== ENCOUNTER → 2023-07-30 | Outpatient (REF) | payer OTHER ==
[~2023-07-30] MED LIST changes: -GABA-283; +GABA-284
== END ==
LOC: M SFHCWOUN 16:35
PROVIDERS: ATTEND Physician Assistant
DX: L97.219 Non-pressure chronic ulcer of right calf with unspecified severity (principal)

== ENCOUNTER → 2023-08-14 | Outpatient (CLI) | payer OTHER | LOC: M RAD 11:44 | PROVIDERS: ATTEND Physician Assistant | DX: L97.912 Non-pressure chronic ulcer of unspecified part of right lower leg with fat layer exposed (principal); I87.311 Chronic venous hypertension (idiopathic) with ulcer of right lower extremity; I87.2 Venous insufficiency (chronic) (peripheral) ==

== ENCOUNTER → 2023-09-16 | Outpatient (CLI) | payer OTHER ==
[2023-09-16 13:35] LABS: BASO # 0.1 10^3/uL (0.0-0.2); BASO % 0.6 % (0.0-1.0); EOS # 0.2 10^3/uL (0.0-0.5); EOS % 1.1 % (0.0-3.0); HEMATOCRIT 49.1 % (42.0-52.0); HEMOGLOBIN 16.3 g/dl (13.5-17.5); LYMPH # 2.6 10^3/uL (1.5-5.0); LYMPH % 19.1 % (24.0-44.0); MEAN CORPUSCULAR HGB CONC 33.2 g/dl (32.0-36.5); MEAN CORPUSCULAR VOLUME 93.5 fl (80.0-96.0); MONO # 1.3 10^3/uL (0.0-0.8); MONO % 9.8 % (2.0-8.0); NEUTROPHILS # 9.4 10^3/uL (1.5-8.5); PLATELET COUNT, AUTOMATED 320 10^3/uL (150-450); RED BLOOD COUNT 5.25 10^6/uL (4.30-6.10); WHITE BLOOD COUNT 13.6 10^3/uL (4.0-10.0)
[2023-09-16 13:39] LABS: ALBUMIN 4.2 G/DL (3.2-5.2); ALKALINE PHOSPHATASE 67 U/L (46-116); ALT/SGPT 25 U/L (7.0-40); AST/SGOT 26 U/L (<34); BILIRUBIN,TOTAL 0.4 MG/DL (0.3-1.2); BLOOD UREA NITROGEN 17 MG/DL (9-23); CALCIUM LEVEL 9.5 MG/DL (8.5-10.1); CARBON DIOXIDE LEVEL 29 MMOL/L (20-31); CHLORIDE LEVEL 105 MMOL/L (98-107); CREATININE FOR GFR 0.99 MG/DL (0.70-1.30); GLOMERULAR FILTRATION RATE > 60.0 (>60); GLUCOSE, FASTING 93 MG/DL (60-100); POTASSIUM SERUM 4.7 MMOL/L (3.5-5.1); SODIUM LEVEL 138 MMOL/L (136-145); TOTAL PROTEIN 7.4 G/DL (5.7-8.2)
== END ==
LOC: M PLALAB 10:19
PROVIDERS: ATTEND Nurse Practitioner Family
DX: K92.1 Melena (principal)

== ENCOUNTER → 2025-01-11 | Outpatient (CLI) | payer OTHER ==
[~2025-01-11] MED LIST changes: +DOXY-441 PO; -DOXY-443 PO
== END ==
LOC: M RAD 14:20
PROVIDERS: ATTEND Student in an Organized Health Care Education/Training Program
DX: I87.8 Other specified disorders of veins (principal)

== ENCOUNTER → 2025-01-28 | Outpatient (CLI) | payer OTHER | LOC: M RAD 12:10 | PROVIDERS: ATTEND Surgery | DX: L98.492 Non-pressure chronic ulcer of skin of other sites with fat layer exposed (principal) ==

== ENCOUNTER → 2025-02-17 | Outpatient (POV) | payer OTHER ==
[~2025-02-17] VITALS: Ht 198.1 cm; Wt 113.6 kg
[2025-02-17 13:05] VITALS: BP 118/82; O2SAT 98
== END ==
LOC: M IRPOV 12:43
PROVIDERS: ATTEND Radiology Diagnostic Radiology
DX: I87.2 Venous insufficiency (chronic) (peripheral) (principal); L97.819 Non-pressure chronic ulcer of other part of right lower leg with unspecified severity; L97.829 Non-pressure chronic ulcer of other part of left lower leg with unspecified severity; F17.210 Nicotine dependence, cigarettes, uncomplicated; Z80.9 Family history of malignant neoplasm, unspecified

== ENCOUNTER → 2025-03-22 | Outpatient (CLI) | payer OTHER | LOC: M PLAIMG 07:38 | PROVIDERS: ATTEND Student in an Organized Health Care Education/Training Program | DX: I87.8 Other specified disorders of veins (principal) ==

== ENCOUNTER → 2025-04-22 | Outpatient (CLI) | payer OTHER ==
[~2025-04-22] MED LIST changes: +IBUPROFEN 600 MG TAB PO PRN
[2025-04-22 08:06] VITALS: TEMP 98.1
[2025-04-22] MEDS: SODIUM TETRADECYL SULFATE (1%) 20MG/2ML VIAL (SOTRADECOL) IV SCH (10:19)
[2025-04-22] MEDS: LIDOCAINE 1% MDV 20 ML VIAL SC SCH (10:19)
[2025-04-22] MEDS: SODIUM CHLORIDE 0.9% 1000 ML XX SCH (10:19)
[2025-04-22 10:45] VITALS: BP 105/58; O2SAT 99
== END ==
LOC: M IRPRO 07:26
PROVIDERS: ATTEND Radiology Diagnostic Radiology
DX: I87.2 Venous insufficiency (chronic) (peripheral) (principal)
CPT/HCPCS: 36468; 36482; 36483; 76942; C1769

== ENCOUNTER → 2025-04-26 | Outpatient (CLI) | payer OTHER ==
[~2025-04-26] MED LIST changes: -IBUPROFEN 600 MG TAB PO PRN
== END ==
LOC: M RAD 12:22
PROVIDERS: ATTEND Radiology Diagnostic Radiology
DX: I87.2 Venous insufficiency (chronic) (peripheral) (principal); I80.01 Phlebitis and thrombophlebitis of superficial vessels of right lower extremity

== ENCOUNTER → 2025-05-10 | Outpatient (POV) | payer OTHER ==
[2025-05-10 11:48] VITALS: BP 131/76; O2SAT 96
== END ==
LOC: M IRPOV 11:39
PROVIDERS: ATTEND Registered Nurse School
DX: Z48.812 Encounter for surgical aftercare following surgery on the circulatory system (principal); I80.02 Phlebitis and thrombophlebitis of superficial vessels of left lower extremity

== ENCOUNTER → 2025-05-24 | Outpatient (CLI) | payer OTHER | LOC: M RAD 11:47 | PROVIDERS: ATTEND Radiology Diagnostic Radiology | DX: I87.8 Other specified disorders of veins (principal) ==

== ENCOUNTER → 2025-05-26 | Outpatient (POV) | payer OTHER | LOC: M IRPOV 11:30 | PROVIDERS: ATTEND Radiology Diagnostic Radiology | DX: I87.2 Venous insufficiency (chronic) (peripheral) (principal); I83.029 Varicose veins of left lower extremity with ulcer of unspecified site; L97.929 Non-pressure chronic ulcer of unspecified part of left lower leg with unspecified severity; F17.200 Nicotine dependence, unspecified, uncomplicated; Z71.6 Tobacco abuse counseling; Z81.8 Family history of other mental and behavioral disorders; Z80.1 Family history of malignant neoplasm of trachea, bronchus and lung; Z91.018 Allergy to other foods | CPT/HCPCS: 99406; G0463 ==